=== PATIENT | female | born 1930 | race Caucasian/White ===

== ENCOUNTER → 2016-10-30 | Day surgery (SDC) | payer OTHER ==
[~2016-10-30] MED LIST: LACTATED RINGER'S 1000 ML INJ 1,000 ML ONE; LIDOCAINE 1%/EPINEPHrine 1:100,000 SOLN 20 ML VIAL ONE; MIDAZOLAM HCL 2 MG/2 ML VIAL ONE; PROPOFOL 200 MG/20 ML AMP IV ONE; ceFAZolin INJ 1,000 MG VIAL ONE
--- NOTE | 2016-10-30 09:52 | TN ---
cc: RAMOS DIOR M.D. DATE OF SURGERY 10/30/2016 PREOPERATIVE DIAGNOSIS Right carpal tunnel syndrome POSTOPERATIVE DIAGNOSIS Right carpal tunnel syndrome PROCEDURE Right carpal tunnel release SURGEON Isak Dior MD ASSESSMENT Staff SPECIMENS None ESTIMATED BLOOD LOSS Minimum COMPLICATIONS None ANESTHESIA General, TIVA DRAINS None TOURNIQUET TIME 10 minutes 200 mmHg CONDITION Stable PLAN OF ACTIVITY Per orders. PROCEDURE The patient brought into the operating room and had satisfactory anesthesia by Dr. Ballard of the Department of Anesthesia. The right upper extremity was prepped and draped in the usual sterile manner. The extremity was exsanguinated by Anthony wrap, tourniquet was inflated to 200 mmHg. 6 cc of 1% lidocaine with epinephrine was used to infiltrate the operative site. The extremity was exsanguinated by Anthony wrap. Tourniquet was inflated to 200 mmHg. A longitudinal incision made over the carpal canal between the thenar and hypothenar eminences. Dissected carried down the transverse carpal ligament. This was incised longitudinally. Release of the distal forearm fascia and the median nerve was performed. Great care was made to protect the recurrent motor branch. All bleeding were individually coagulated with bipolar anticoagulation. The wound was closed in layers with 3-0 Vicryl. Skin was approximated with 3-0 nylon. The tourniquet was deflated. The wound itself was dry. A sterile dressing applied. The patient tolerated procedure in stable well and was taken to the Recovery Room in stable and satisfactory condition. MD MARGARET Lang/TIKI /9:37 AM 9:41 AM
== END | disposition home or self-care (01) ==
LOC: ESDC 07:50
PROVIDERS: ATTEND Orthopaedic Surgery Orthopaedic Surgery of the Spine
DX: G56.01 Carpal tunnel syndrome, right upper limb (principal)
CPT/HCPCS: 01810; 64721; J0690; J2250; J3010; J7120